=== PATIENT | female | born 1965 | race Caucasian/White ===

== ENCOUNTER 2024-12-27 11:19 | Emergency (ER) | payer MEDICAID ==
[2024-12-27 11:33] VITALS: TEMP 98.7; O2SAT 96
--- NOTE | 2024-12-27 11:35 | ERPHSYRPT ---
- History of Present Illness Time Seen by Provider: 12/27/24 11:22 Source: patient Exam Limitations: no limitations Patient Subjective Stated Complaint: Shortness of breath, low oxygen, cough Physician History: Patient is a 59-year-old female who has not felt well for the last 1 month, she has had a cough, intermittent shortness of breath and chest tightness, however last 4 days her symptoms worsen she states where she is found over the last 1 day she has had low oxygen with worse low oxygen being on December 26, 2024 when he went down to 87% on room air, but she did not get evaluated at that time. Patient states that she is not as active as usual, but otherwise nothing else triggers for her symptoms besides activity and coughing at times. Patient has tried Tessalon Perles with improvement of her cough during this time. Patient denies any new fever or any active chest pain over the last 4 days. Patient has not been evaluated or treated by anyone over the past 1 month as she has had the symptoms. She was encouraged to be evaluated by her sister who is a nurse after telling her sister of the symptoms, and since patient does not have establishment with a primary care physician, she came to the emergency room for further evaluation. Timing/Duration: week(s) (For), gradual onset, worse (Over the past 4 days, low oxygen over the past 1 day) Severity of Dyspnea-Max: moderate Severity of Dyspnea-Current: moderate Possible Cause: no prior episodes Modifying Factors: Improves With: rest, other (Tessalon Perles). Worsens With: activity, coughing Associated Symptoms: intermittent, cough, heaviness, tightness, No chest pain/discomfort, No edema, No fever, No ankle swelling, No calf pain, No dizziness, No lightheadedness, No leg swelling, No painful breathing Allergies/Adverse Reactions: No Known Drug Allergies Allergy (Verified 12/27/24 11:33) Hx Influenza Vaccination/Date Given: No Hx Pneumococcal Vaccination/Date Given: No - Review of Systems Constitutional: Chills, No Fever, No Fatigue, No Lethargy, No Malaise, No Other Eyes: No Symptoms, No Discharge, No Eye Pain, No Photophobia Ears, Nose, & Throat: No Symptoms, No Nose Pain, No Nose Congestion, No Nose Discharge, No Throat Pain, No Throat Swelling, No Painful Swallowing Respiratory: Cough, Dyspnea Cardiac: Palpitations, No Chest Pain, No Edema, No Syncope Abdominal/Gastrointestinal: No Abdominal Pain, No Nausea, No Vomiting, No Diarrhea Genitourinary Symptoms: No Dysuria, No Hematuria, No Flank Pain Musculoskeletal: No Back Pain, No Neck Pain, No Myalgias Skin: No Rash Neurological: No Dizziness, No Focal Weakness, No Headache, No Sensory Changes Psychological: No Symptoms Endocrine: No Symptoms Hematologic/Lymphatic: No Easy Bleeding, No Easy Bruising All Other Systems: Reviewed and Negative - Nursing Vital Signs Nursing Vital Signs: Initial Vital Signs Temperature 98.7 F 12/27/24 11:21 Pulse Rate 96 H 12/27/24 11:21 Respiratory Rate 22 12/27/24 11:21 Blood Pressure 164/100 12/27/24 11:21 O2 Sat by Pulse Oximetry 97 12/27/24 11:21 Pain Scale Pain Intensity 0 - Physical Exam General Appearance: no apparent distress, alert Eye Exam: PERRL/EOMI, eyes nml inspection, No scleral icterus Ears, Nose, Throat Exam: normal ENT inspection, normal pharynx, No nasal congestion, No pharyngeal erythema Neck Exam: normal inspection, non-tender, supple, full range of motion, No Brudzinski, No Kernig's, No JVD, No lymphadenopathy (R), No lymphadenopathy (L), No tenderness midline Respiratory Exam: normal breath sounds, lungs clear, respiratory distress, airway intact, No accessory muscle use, No crackles/rales, No rhonchi, No wheezing, No stridor Cardiovascular/Chest Exam: normal heart sounds, regular rate/rhythm, normal peripheral pulses, No murmur, No edema, No JVD Abdominal/Gastrointestinal Exam: soft, normal bowel sounds, No tenderness, No distention, No mass Extremity Exam: non-tender, normal range of motion, normal inspection, no calf tenderness, no pedal edema Peripheral Pulses Exam: dorsalis-pedis (R): 2+, dorsalis-pedis (L): 2+ Neurologic Exam: alert, oriented x 3, cooperative, kiln feeder II-XII nml as tested, normal mood/affect, sensation nml, No motor deficits Skin Exam: normal color, warm, No dry SpO2 Interpretation: normal SpO2: 96 O2 Delivery: Room Air - Course Nursing assessment & vital signs reviewed: Yes EKG Interpreted by Me: RATE (93), Sinus Rhythm, NORMAL AXIS, NORMAL INTERVALS, NORMAL QRS, NORMAL ST-T, Other (Negative previous EKG for comparison) - Radiology Exams Chest X-ray Interpretation: Teleradiologist Report, Negative, Other Ordered Tests: Active Orders 24 hr Category Date Time Status Line Tender Flakeboard STAT Care 12/27/24 11:28 Active EKG-ER Only STAT Care 12/27/24 11:25 Active ACO SDOH Referral ONCE Cons 12/27/24 11:32 Active CHEST 1 VIEW (PORTABLE) Stat Exams 12/27/24 11:28 Completed BLOOD CULTURE Stat Lab 12/27/24 12:05 Received CBC W DIFF Stat Lab 12/27/24 12:00 Completed CMP Stat Lab 12/27/24 12:00 Completed D-DIMER QUANTITATIVE Stat Lab 12/27/24 12:00 Completed Lactic Acid Stat Lab 12/27/24 11:39 Completed MAGNESIUM Stat Lab 12/27/24 12:00 Completed NT PRO BNPII Stat Lab 12/27/24 12:00 Completed PROTIME WITH INR Stat Lab 12/27/24 12:00 Completed TROPONIN Q4H Lab 12/27/24 12:00 Completed TROPONIN Q4H Lab 12/27/24 15:30 Ordered TROPONIN Q4H Lab 12/27/24 19:30 Ordered UA W/RFX UR CULTURE Stat Lab 12/27/24 11:52 Completed VENOUS BLOOD GAS Stat Lab 12/27/24 11:39 Completed Respiratory Therapy Assessment DAILY RT 12/27/24 11:40 Completed Medication Summary Discontinued Medications Generic Name Dose Route Start Last Admin Trade Name Freq PRN Reason Stop Dose Admin Albuterol/Ipratropium 3 ml 12/27/24 11:25 12/27/24 11:40 Ipratropium/Albuterol Sulfate 3 Ml Ampul.Neb IH 12/27/24 11:26 3 ml STAT ONE Administration Albuterol/Ipratropium Confirm 12/27/24 11:36 Ipratropium/Albuterol Sulfate 3 Ml Ampul.Neb Administered 12/27/24 11:37 Dose 3 ml IH .STK-MED ONE Lab/Rad Data: Laboratory Result Diagrams 12/27/24 12:00 12/27/24 12:00 Laboratory Results 12/27/24 12/27/24 12/27/24 Range/Units 12:05 12:00 12:00 WBC (3.98-10.04) x10^3/uL RBC (3.93-5.22) x10^6/uL Hgb (11.2-15.7) g/dL Hct (34.1-44.9) % MCV (79.4-94.8) fL MCH (25.6-32.2) pg MCHC (32.2-35.5) g/dL RDW (11.7-14.4) % Plt Count (182-369) x10^3/uL MPV (9.4-12.3) fL Gran % (34.0-71.1) % Immature Gran % (Auto) (0.001-0.429) % Nucleat RBC Rel Count (0.00-0.2) % Eos # (Auto) (0.04-0.36) x10^3/uL Immature Gran # (Auto) (0.001-0.031) x10^3u/L Absolute Lymphs (auto) (1.18-3.74) x10^3/uL Absolute Monos (auto) (0.24-0.86) x10^3/uL Absolute Nucleated RBC (0.00-0.012) x10^3u/L Lymphocytes % (19.3-51.7) % Monocytes % (4.7-12.5) % Eosinophils % (0.7-5.8) % Basophils % (0.1-1.2) % Absolute Granulocytes (1.56-6.13) x10^3/uL Basophils # (0.01-0.08) x10^3/uL PT 9.8 (9.4-12.5) SECONDS INR 0.89 (0.8-3.0) D-Dimer < 0.19 (0.0-0.50) mg/L pO2/FiO2 Ratio % VBG pH (7.32-7.42) VBG pCO2 at Pat Temp (42-55) mm/Hg VBG pO2 at Pat Temp (25-40) mm/Hg VBG HCO3 (22-28) meq/L VBG O2 Sat (Melanie) (95-100) VBG Base Excess (-2.0-2.0) VBG Hemoglobin VBG Carboxyhemoglobin (0.0-6.9) % T HGB POC Potassium (3.5-5.1) Sodium (135-145) mmol/L Potassium (3.5-5.1) mmol/L Chloride (98-107) mmol/L Carbon Dioxide (22-30) mmol/L Anion Gap (5-15) MEQ/L BUN (7-17) mg/dL Creatinine (0.52-1.04) mg/dL Estimated GFR ML/MIN Glucose (74-106) mg/dL Lactic Acid (0.4-2.0) Calcium (8.4-10.2) mg/dL Magnesium (1.6-2.3) mg/dL Total Bilirubin (0.2-1.3) mg/dL AST (14-36) U/L ALT (0-35) U/L Alkaline Phosphatase (38-126) U/L Troponin I < 0.012 (0.000-0.033) ng/mL NT-Pro-B Natriuret Pep 90.2 (<300) pg/mL Serum Total Protein (6.3-8.2) g/dL Albumin (3.5-5.0) g/dL Urine Color (Yellow) Urine Appearance (Clear) Urine pH (4.6-8.0) Ur Specific [place] (1.005-1.030) Urine Protein (Negative) Urine Glucose (UA) (Negative) mg/dL Urine Ketones (Negative) Urine Blood (Negative) Urine Nitrite (Negative) Urine Bilirubin (Negative) Urine Urobilinogen (0.2) mg/dL Ur Leukocyte Esterase (Negative) U Hyaline Cast (Auto) (0-2) /LPF Urine Microscopic RBC (0-5) /HPF Urine Microscopic WBC (0-5) /HPF Ur Epithelial Cells (None Seen) /HPF Urine Bacteria (None Seen) /HPF Urine Culture Reflexed (NO) Influenza Type A Ag NEGATIVE (NEGATIVE) Influenza Type B Ag NEGATIVE (NEGATIVE) RSV (PCR) NEGATIVE (NEGATIVE) SARS-CoV-2 (PCR) NEGATIVE (NEGATIVE) 12/27/24 12/27/24 12/27/24 Range/Units 12:00 12:00 11:52 WBC 9.3 (3.98-10.04) x10^3/uL RBC 4.33 (3.93-5.22) x10^6/uL Hgb 13.4 (11.2-15.7) g/dL Hct 40.0 (34.1-44.9) % MCV 92.4 (79.4-94.8) fL MCH 30.9 (25.6-32.2) pg MCHC 33.5 (32.2-35.5) g/dL RDW 12.5 (11.7-14.4) % Plt Count 383 H (182-369) x10^3/uL MPV 10.7 (9.4-12.3) fL Gran % 64.8 (34.0-71.1) % Immature Gran % (Auto) 0.3 (0.001-0.429) % Nucleat RBC Rel Count 0.0 (0.00-0.2) % Eos # (Auto) 0.17 (0.04-0.36) x10^3/uL Immature Gran # (Auto) 0.03 (0.001-0.031) x10^3u/L Absolute Lymphs (auto) 2.64 (1.18-3.74) x10^3/uL Absolute Monos (auto) 0.41 (0.24-0.86) x10^3/uL Absolute Nucleated RBC 0.00 (0.00-0.012) x10^3u/L Lymphocytes % 28.4 (19.3-51.7) % Monocytes % 4.4 L (4.7-12.5) % Eosinophils % 1.8 (0.7-5.8) % Basophils % 0.3 (0.1-1.2) % Absolute Granulocytes 6.01 (1.56-6.13) x10^3/uL Basophils # 0.03 (0.01-0.08) x10^3/uL PT (9.4-12.5) SECONDS INR (0.8-3.0) D-Dimer (0.0-0.50) mg/L pO2/FiO2 Ratio % VBG pH (7.32-7.42) VBG pCO2 at Pat Temp (42-55) mm/Hg VBG pO2 at Pat Temp (25-40) mm/Hg VBG HCO3 (22-28) meq/L VBG O2 Sat (Melanie) (95-100) VBG Base Excess (-2.0-2.0) VBG Hemoglobin VBG Carboxyhemoglobin (0.0-6.9) % T HGB POC Potassium (3.5-5.1) Sodium 138 (135-145) mmol/L Potassium 4.9 (3.5-5.1) mmol/L Chloride 106 (98-107) mmol/L Carbon Dioxide 25 (22-30) mmol/L Anion Gap 11.9 (5-15) MEQ/L BUN 16 (7-17) mg/dL Creatinine 0.71 (0.52-1.04) mg/dL Estimated GFR 97.9 ML/MIN Glucose 107 H (74-106) mg/dL Lactic Acid (0.4-2.0) Calcium 10.6 H (8.4-10.2) mg/dL Magnesium 1.9 (1.6-2.3) mg/dL Total Bilirubin 0.40 (0.2-1.3) mg/dL AST 29 (14-36) U/L ALT 20 (0-35) U/L Alkaline Phosphatase 59 (38-126) U/L Troponin I (0.000-0.033) ng/mL NT-Pro-B Natriuret Pep (<300) pg/mL Serum Total Protein 7.3 (6.3-8.2) g/dL Albumin 4.6 (3.5-5.0) g/dL Urine Color Yellow (Yellow) Urine Appearance Clear (Clear) Urine pH 5.5 (4.6-8.0) Ur Specific [place] 1.025 (1.005-1.030) Urine Protein Trace A (Negative) Urine Glucose (UA) Negative (Negative) mg/dL Urine Ketones Negative (Negative) Urine Blood Negative (Negative) Urine Nitrite Negative (Negative) Urine Bilirubin Negative (Negative) Urine Urobilinogen 0.2 (0.2) mg/dL Ur Leukocyte Esterase Negative (Negative) U Hyaline Cast (Auto) NONE SEEN (0-2) /LPF Urine Microscopic RBC 0-2 (0-5) /HPF Urine Microscopic WBC 3-5 (0-5) /HPF Ur Epithelial Cells None Seen (None Seen) /HPF Urine Bacteria None Seen (None Seen) /HPF Urine Culture Reflexed NO (NO) Influenza Type A Ag (NEGATIVE) Influenza Type B Ag (NEGATIVE) RSV (PCR) (NEGATIVE) SARS-CoV-2 (PCR) (NEGATIVE) 12/27/24 12/27/24 Range/Units 11:39 11:39 WBC (3.98-10.04) x10^3/uL RBC (3.93-5.22) x10^6/uL Hgb (11.2-15.7) g/dL Hct (34.1-44.9) % MCV (79.4-94.8) fL MCH (25.6-32.2) pg MCHC (32.2-35.5) g/dL RDW (11.7-14.4) % Plt Count (182-369) x10^3/uL MPV (9.4-12.3) fL Gran % (34.0-71.1) % Immature Gran % (Auto) (0.001-0.429) % Nucleat RBC Rel Count (0.00-0.2) % Eos # (Auto) (0.04-0.36) x10^3/uL Immature Gran # (Auto) (0.001-0.031) x10^3u/L Absolute Lymphs (auto) (1.18-3.74) x10^3/uL Absolute Monos (auto) (0.24-0.86) x10^3/uL Absolute Nucleated RBC (0.00-0.012) x10^3u/L Lymphocytes % (19.3-51.7) % Monocytes % (4.7-12.5) % Eosinophils % (0.7-5.8) % Basophils % (0.1-1.2) % Absolute Granulocytes (1.56-6.13) x10^3/uL Basophils # (0.01-0.08) x10^3/uL PT (9.4-12.5) SECONDS INR (0.8-3.0) D-Dimer (0.0-0.50) mg/L pO2/FiO2 Ratio 21.0 % VBG pH 7.41 (7.32-7.42) VBG pCO2 at Pat Temp 43 (42-55) mm/Hg VBG pO2 at Pat Temp 43 H (25-40) mm/Hg VBG HCO3 27.3 (22-28) meq/L VBG O2 Sat (Melanie) 70.9 L (95-100) VBG Base Excess 2.2 H (-2.0-2.0) VBG Hemoglobin 14.1 VBG Carboxyhemoglobin 4.0 (0.0-6.9) % T HGB POC Potassium 4.7 (3.5-5.1) Sodium (135-145) mmol/L Potassium (3.5-5.1) mmol/L Chloride (98-107) mmol/L Carbon Dioxide (22-30) mmol/L Anion Gap (5-15) MEQ/L BUN (7-17) mg/dL Creatinine (0.52-1.04) mg/dL Estimated GFR ML/MIN Glucose (74-106) mg/dL Lactic Acid 0.9 (0.4-2.0) Calcium (8.4-10.2) mg/dL Magnesium (1.6-2.3) mg/dL Total Bilirubin (0.2-1.3) mg/dL AST (14-36) U/L ALT (0-35) U/L Alkaline Phosphatase (38-126) U/L Troponin I (0.000-0.033) ng/mL NT-Pro-B Natriuret Pep (<300) pg/mL Serum Total Protein (6.3-8.2) g/dL Albumin (3.5-5.0) g/dL Urine Color (Yellow) Urine Appearance (Clear) Urine pH (4.6-8.0) Ur Specific [place] (1.005-1.030) Urine Protein (Negative) Urine Glucose (UA) (Negative) mg/dL Urine Ketones (Negative) Urine Blood (Negative) Urine Nitrite (Negative) Urine Bilirubin (Negative) Urine Urobilinogen (0.2) mg/dL Ur Leukocyte Esterase (Negative) U Hyaline Cast (Auto) (0-2) /LPF Urine Microscopic RBC (0-5) /HPF Urine Microscopic WBC (0-5) /HPF Ur Epithelial Cells (None Seen) /HPF Urine Bacteria (None Seen) /HPF Urine Culture Reflexed (NO) Influenza Type A Ag (NEGATIVE) Influenza Type B Ag (NEGATIVE) RSV (PCR) (NEGATIVE) SARS-CoV-2 (PCR) (NEGATIVE) - Progress Progress: improved, re-examined Air Movement: good Progress Note: 12/27/24 12:55 Patient is felt much better after the DuoNeb treatment, has maintained sinus rhythm with normal SpO2 on room air throughout her time the emergency ferment and review with her that we are awaiting her viral swab results as there is no other secondary cause has been found thus far in examination or lab work, i maging studies or venous blood gas that are require immediate intervention or admission. 12/27/24 13:33 Patient is in no type respiratory distress on repeat evaluation, maintaining her SpO2 on room air in the late 90s without any oxygen or ventilatory support and I reviewed with her her lab results and treatment plan 12/27/24 13:36 Patient is a 59-year-old female whose had a cough for the past month who over the last 4 days her symptoms worsened in regards to shortness of breath, cough and having low oxygen where it was lowest 1 day prior to come to the emergency ferment down to 8788% on room air. Patient otherwise had no other concerning review of systems or any concerning physical exam findings that showed normal SpO2 on room air and appeared to be noted to have no type of respiratory distress, but due to not having any primary care establishment and duration of symptoms, secondary workup included EKG, venous blood gas, blood cultures, viral swabs for influenza, RSV and COVID, chest x-ray, lab work, urinalysis and continuous cardiac and SpO2 monitoring. Treatment included a DuoNeb treatment to check patient's response both subjectively and objectively. Patient's viral swabs for influenza, COVID and RSV were negative, patient's chest x-ray was negative, patient's D-dimer was negative placing her at low risk with her history, examination and risk factors for having a pulmonary embolus causing her symptoms, with patient having a normal CBC with normal H&H, normal venous blood gas, normal lactic acid, normal CMP, negative urinalysis, normal proBNP, negative troponin with chest x-ray only showing hyperinflation but otherwise no other acute abnormalities. Patient had excellent response to DuoNeb treatment, so we will continue with albuterol inhaler with a spacer to do every 4 hours while awake for the next 3 days, will do Flonase nasal spray to help with sinus congestion and nasal congestion, as well as a short supply of Promethazine DM every 6 hours to help with cough relief to help her when she is home. Patient is return back to the nearest emergency room she has any new dyspnea, new productive cough, new fever, new altered mental status, new putter type chest pain, new abdominal pain, new uncontrollable vomiting or diarrhea or any other concerning signs or symptoms that were not present at today's emergency room visit for immediate reevaluation in the nearest emergency department. Patient this time can be discharged home as she is at low risk for acute cardiac, pulmonary, vascular, infectious or referred upper GI issues causing her dyspnea and she had no signs of hypoxia throughout her time in the emergency department with an encouraging venous blood gas. Medical Desision Making - Independent Historian Additional History obtained from: Spouse - Diagnostic Testing Diagnostic test were ordered, analyzed, and reviewed by me: Yes Radiological Interpretation: Interpreted by me, Teleradiologist Report - Risk of complications Low Risk: Low risk of morbidity from additional dx testing or treatment - Departure Departure Disposition: Home Clinical Impression: Hypoxia, Acute bronchitis with bronchospasm Dyspnea Qualifiers: Dyspnea type: unspecified Qualified Code(s): R06.00 - Dyspnea, unspecified Condition: Good Critical Care Time: No Referrals: DOCTOR,NO FAMILY [Primary Care Provider] - Follow up/PCP as directed JANETTE HALE MD [ACTIVE STAFF] - Follow Up with PCP/3 days Instructions: Shortness of Breath (Dyspnea) (DC), Bronchitis in adults - ED discharge instructions Additional Instructions: Return back to the nearest emergency room for any new fever greater than 101, worsening shortness of breath, new pain when he taking a deep breath, new productive cough, new coughing up blood, new chest pain, new uncontrollable vomiting or diarrhea, new abdominal pain, new confusion or any other concerning signs or symptoms that were not present at today's emergency room visit for immediate reevaluation in the nearest emergency department Forms: Work/School Release Form Prescriptions: Promethazine/Dextromethorphan [Promethazine-Dm 6.25-15 mg/5Ml] 5 ml PO Q6H PRN PRN #90 PRN Reason: Cough Fluticasone Propionate [Flonase NASAL] 2 spray NS BID #1 Albuterol Sulfate [Proair Digihaler] 1 - 2 puff IH Q4-6HPRN #1 Inhaler,Assist Device,Med Mask [Space Chamber-Medium Mask] 1 each MC Q4-6HPRN PRN #1 PRN Reason: wheeze/cough
[2024-12-27] MEDS ORDERED: DUONEB 0.5-3 MG/3 ml Neb IH ONE (11:36)
[2024-12-27] MEDS: DUONEB 0.5-3 MG/3 ml Neb IH ONE (11:40)
[2024-12-27 11:44] LABS: VBG BASE EXCESS 2.2 (-2.0-2.0); VBG HCO3- 27.3 meq/L (22-28); VBG HEMOGLOBIN 14.1; VBG O2 SATURATION 70.9 (95-100); VBG POTASSIUM 4.7 (3.5-5.1); VBG pH 7.41 (7.32-7.42)
--- NOTE | 2024-12-27 11:47 | XRAY ---
Indication: Dyspnea. Comparison: None Portable chest hyperinflated and clear. Heart and mediastinal structures within normal limits. Bony thorax intact. Impression: Nonacute hyperinflated chest.
[2024-12-27 12:03] LABS: Absolute Neutrophil Ct (ANC) 6.01 x10^3/uL (1.56-6.13); BASOPHIL % 0.3 % (0.1-1.2); Basophil (Absolute #) 0.03 x10^3/uL (0.01-0.08); Eosinophil % 1.8 % (0.7-5.8); Eosinophil (Absolute #) 0.17 x10^3/uL (0.04-0.36); Hemoglobin 13.4 g/dL (11.2-15.7); IMMATURE GRAN # 0.03 x10^3u/L (0.001-0.031); IMMATURE GRAN % 0.3 % (0.001-0.429); Lymphocyte (Absolute #) 2.64 x10^3/uL (1.18-3.74); Lymphocytes % 28.4 % (19.3-51.7); Mean Cell Volume 92.4 fL (79.4-94.8); Mean Corpuscular Hemoglobin 30.9 pg (25.6-32.2); Mean Corpuscular Hgb Concent. 33.5 g/dL (32.2-35.5); Mean Platelet Volume 10.7 fL (9.4-12.3); Monocyte (Absolute #) 0.41 x10^3/uL (0.24-0.86); Monocytes % 4.4 % (4.7-12.5); Neutrophil % 64.8 % (34.0-71.1); Platelet Count 383 x10^3/uL (182-369); Red Blood Count 4.33 x10^6/uL (3.93-5.22); Red Cell Distribution Width 12.5 % (11.7-14.4); White Blood Count 9.3 x10^3/uL (3.98-10.04)
[2024-12-27 12:11] LABS: Appearance Clear (Clear); Bacteria None Seen /HPF (None Seen); Bilirubin Negative (Negative); Blood Negative (Negative); Epithelial Cells None Seen /HPF (None Seen); Glucose, Urine Negative (Negative); Hyaline Casts NONE SEEN /LPF (0-2); Ketones Negative (Negative); Leukocyte Esterase Negative (Negative); Nitrite Negative (Negative); Ph 5.5 (4.6-8.0); Protein,Urine Dip Trace (Negative); RBC 0-2 /HPF (0-5); Specific Gravity 1.025 (1.005-1.030); Urobilinogen 0.2 mg/dL (0.2)
[2024-12-27 12:15] LABS: ALBUMIN 4.6 g/dL (3.5-5.0); ANION GAP 11.9 MEQ/L (5-15); BILIRUBIN,TOTAL 0.4 mg/dL (0.2-1.3); Calcium 10.6 mg/dL (8.4-10.2); Creatinine 1 0.71 mg/dL (0.52-1.04); EST GLOMERULAR FILTRATION RATE 97.9 ML/MIN; MAGNESIUM 1.9 mg/dL (1.6-2.3); Potassium 4.9 mmol/L (3.5-5.1); Total Protein 7.3 g/dL (6.3-8.2)
[2024-12-27 12:17] LABS: D-DIMER QUANTITATIVE < 0.19 mg/L (0.0-0.50); INR 0.89 (0.8-3.0); PROTIME 9.8 SECONDS (9.4-12.5)
[2024-12-27 12:27] LABS: NT PRO BNPII 90.2 pg/mL (<300); TROPONIN < 0.012 ng/mL (0.000-0.033)
[2024-12-27 12:58] LABS: INFLUENZA A NEGATIVE (NEGATIVE); INFLUENZA B NEGATIVE (NEGATIVE); RESPIRATORY SYNCTIAL VIRUS NEGATIVE (NEGATIVE); SARS-CoV-2 Xpert Express NEGATIVE (NEGATIVE)
[2024-12-27 13:57] VITALS: BP 111/74; PULSE 77; RESP 13
== END 2024-12-27 14:02 | disposition home or self-care (01) ==
LOC: ED 11:19
DX: J20.9 Acute bronchitis, unspecified (principal); R09.02 Hypoxemia; R06.00 Dyspnea, unspecified; R05.1 Acute cough; Z79.899 Other long term (current) drug therapy; Z59.41 Food insecurity
CPT/HCPCS: 0241U; 36415; 71045; 80053; 81001; 82805; 83605; 83735; 83880; 84484; 85025; 85379; 85610; 87040; 93005; 93041; 94640; 99285; 99284; A9270-GY